=== PATIENT | female | born 1950 | race Caucasian/White ===

== ENCOUNTER → 2020-12-08 | Day surgery (SDC) | payer MEDICARE, OTHER ==
[~2020-12-08] MED LIST: OXYBUTYNIN CHLO10 MG PO; PRINIVIL10 MG PO; VITAMIN D PO; VOLTAREN **OUT50 MG PO
[2020-12-08 07:51] LABS: HCT 43.9 % (37.0-47.0); HGB 14.9 g/dl (12.5-16.0); MCH 33.8 pg (25.0-31.0); MCHC 33.9 g/dL (32.0-36.0); MCV 99.5 fL (78.0-100.0); MPV 9.8 fL (6.0-9.5); RBC 4.41 M/uL (4.20-5.40); RDW 12.2 % (11.5-14.0); WBC 5.2 K/uL (4.0-10.5)
[2020-12-08 08:18] LABS: BILIRUBIN - TOTAL 0.7 mg/dL (0.2-1.0); BUN/CREAT RATIO (CALC) 25.7 RATIO; CREATININE 0.7 mg/dL (0.51-0.95)
== END | disposition home or self-care (01) ==
LOC: FAS 06:54
PROVIDERS: Surgery
DX: Z12.11 Encounter for screening for malignant neoplasm of colon (principal); K57.30 Diverticulosis of large intestine without perforation or abscess without bleeding; K63.5 Polyp of colon; I10 Essential (primary) hypertension; M81.0 Age-related osteoporosis without current pathological fracture; M19.90 Unspecified osteoarthritis, unspecified site; Z96.659 Presence of unspecified artificial knee joint; Z20.822 Contact with and (suspected) exposure to COVID-19
CPT/HCPCS: 36415; 80053; J1610; J2250; J2704; J7120